=== PATIENT | male | born 1930 | race Caucasian/White ===

== ENCOUNTER 2017-03-22 15:17 | Inpatient (IN) | payer MEDICARE, OTHER ==
--- NOTE | ~2017-03-22 | CN ---
Consultation Report [facility] [address] [place]. [address] NAME: EMERSON CORBIN : [birth year] STATUS : ADM IN PAT#: [id number] AGE: 86 ADM/REG DATE : 03/23/17 MR#: [id number] REPORT SERV DATE: 03/23/17 DICTATED BY: ABI KATHLEEN DATE: 03/23/17 REPORT STATUS : Draft TRANSCRIBED BY: MODBelén DATE: 03/23/17 DATE OF CONSULTATION: TIME: 3:50 p.m. REASON FOR CONSULTATION: Elevated BUN and creatinine. ASSESSMENT: 1. 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 Oliveros catheter was changed, and he has had a significant polyuric state, and his creatinine has declined. Considering his overall debilitated condition, discussed with Dr. Mcgrath, his cancer and his bladder is inoperable, he is not a candidate for urostomy tubes at this time and plan therefore is:. 2. Palliative Care consult in the morning. 3. He is a DNR/DNI. 4. Stop his bicarbonate infusion. 5. Leave his Olivreos catheter and his creatinine should trend down, there is no indication for dialysis at this time and he does not want it either, and I would keep his diet ad sha except for a low-potassium diet. HISTORY OF PRESENT ILLNESS: History is obtained from the patient's records available. He is a very pleasant 86-year-old gentleman who has an unfortunate chronic condition involving his bladder with chronic bladder cancer with chronic obstructive uropathy that is inoperable. He now presented to the hospital. Yesterday, it was noted that his catheter was not functioning well, his urine output had gone down, he developed some bilateral lower quadrant pain. He denied any fever or chills or night sweats, and it was noted that his Oliveros catheter was occluded. With that, he is also draining, leaking around his catheter, and this was of some concern to the patient and his family, and he came for evaluation. He was noted to have a creatinine of 5.13 with a BUN of 77. He was also noted to be febrile with a temperature of 101.9 and a white count of 12,000, and urinalysis was suggestive of a UTI. His CT scan confirmed the presence of bilateral hydronephrosis and hydroureter and with these concerns and an INR of 2.3, he was admitted for further evaluation. He presently feels well. His appetite is good. He wants to eat. He denies any shortness of breath. His flank pain appears to be better and denies any fever or chills. In addition, after his Oliveros catheter was changed, he almost had a liter of urine output and so far in the bag today, already his bag appears to be quite full. PAST MEDICAL HISTORY: 1. Includes a high-grade transitional urothelial cancer, status post radiation treatment, but not a candidate for any further therapy or cystectomy. 2. Mechanical mitral valve replacement, on chronic Coumadin therapy. 3. CKD. 4. Atrial fibrillation. Consultation Report [facility] [address] [facility] [place]. [address] NAME: EMERSON CORBIN : [birth year] STATUS : ADM IN [facility]#: [id number] AGE: 86 ADM/REG DATE : 03/23/17 MR#: [id number] REPORT SERV DATE: 03/23/17 DICTATED BY: ABI KATHLEEN DATE: 03/23/17 REPORT STATUS : Draft TRANSCRIBED BY: MODESTO DATE: 03/23/17 5. Chronic heart failure. 6. Anemia of CKD and cancer. 7. Hypothyroidism. 8. Previous E coli urinary tract infection with bacteremia. He has had an appendectomy and a TURP in the past. ALLERGIES: MORPHINE AND CODEINE. HOME MEDICATIONS: Tylenol, allopurinol, vitamin C and D, Colace, ferrous sulfate, Allie, Lasix, levothyroxine, potassium, Senokot, tramadol, triamcinolone, Coumadin, and some vitamin for his vision. SOCIAL HISTORY: No tobacco, alcohol, medication, or street drug usage. His daughter has moved in with him. FAMILY HISTORY: His mother had thyroid cancer. Father from complications from a motor vehicle accident. REVIEW OF SYSTEMS: As per the HPI. PHYSICAL EXAMINATION: GENERAL: He is an elderly patient awake and alert, in no acute distress and he is appropriate to questions. He has some cachexia and debilitation with muscle wasting. He is awake, alert. He is appropriate to questions. He is slow to talk, but his speech is normal and he has no focal symptoms at this point. VITAL SIGNS: Showed him to have a blood pressures running 147/64. His heart rate is in the 90s, but he is in atrial fibrillation. HEENT: His pupils are reacting to light. He is not pale or jaundiced. Oral mucosa is moist. No pharyngitis. NECK: Supple. No thyromegaly. Trachea central. Air entry is equal bilaterally. CHEST: Clear to auscultation. HEART: [place] beats not displaced. S1-S2. No rub. ABDOMEN: Mildly distended, but he has a fullness in his lower abdomen, but it does not appear like he is tender to touch. There is no guarding or rebound. His bowel sounds are present. EXTREMITIES: He has a trace edema. He is moving all limbs spontaneously. NEUROLOGIC: There are no gross neurological deficits. His affect is not depressed either. IMAGING: His CT scan shows severe bilateral hydronephrosis and hydroureter. Bladder decompression on Oliveros catheter is noted. Bilateral simple cysts are noted. His prostate is noted to be enlarged, cardiomegaly, partially contracted gallbladder is noted as well. LABORATORY DATA: Lab work today: Sodium 140, potassium 4.4, chloride 105, CO2 24, BUN 72, creatinine 4.81, albumin is 2.7. His hemoglobin is 7.3, hematocrit 22.2, white count 10.9, Consultation Report [address] [address] NAME: EMERSON CORBIN : [birth year] STATUS : ADM IN [facility]#: [id number] AGE: 86 ADM/REG DATE : 03/23/17 MR#: [id number] REPORT SERV DATE: 03/23/17 DICTATED BY: ABI KATHLEEN DATE: 03/23/17 REPORT STATUS : Draft TRANSCRIBED BY: MODL DATE: 03/23/17 and platelet count 212,000. His urinalysis showed pyuria. MG/MODL Abi Kathleen M.D. / [id number] CC: Piyush Pineda MD
--- NOTE | ~2017-03-22 | DS ---
Discharge Summary [facility] [address] [facility] [place]. [address] NAME: EMERSON CORBIN : [birth year] STATUS : DIS IN PAT#: [id number] AGE: 86 ADM/REG DATE : 03/23/17 MR#: [id number] REPORT SERV DATE: 03/27/17 DICTATED BY: SURYA GARCIA DATE: 03/26/17 REPORT STATUS : Draft TRANSCRIBED BY: MODL DATE: 03/26/17 ADMISSION DATE: 03/23/2017 DISCHARGE DATE: 03/26/2017 PRINCIPAL DIAGNOSES: Acute kidney injury due to bladder outlet obstruction and ureteral obstruction due to metastatic transitional cell carcinoma. SECONDARY DIAGNOSES: 1. Urinary tract infection. 2. Chronic systolic congestive heart failure. 3. Anemia of chronic disease. 4. Hypotension due to impaired cardiac output. 5. He had a history of mechanical aortic valve. 6. Cachexia malignancy. HISTORY OF PRESENT ILLNESS: Please see Dr. Rivers's dictation on 03/23/2017. HOSPITAL COURSE: Admitted to the ICU with hypotension, acute kidney injury, found to have bladder outlet obstruction and ureteral obstruction. Has some improvement in creatinine with a Oliveros catheterization seen by Urology and nephrostomy tube was discussed, but felt not to be necessary as creatinine had improved and functional status had improved; however, his prognosis did not. He was not felt to be a candidate for dialysis for surgical or medical cure or even treatment for his transitional cell carcinoma. Hospice care was discussed. He was transitioned home with [facility], and he went home in satisfactory condition with low-salt, low-fat diet. Coreg and hydralazine were added to his regimen due to his heart failure and as well as Duricef for his UTI. Other medicines were per chart. Greater than 30 minutes were spent in the care of this patient and discharge planning on discharge day. RAHUL/MODESTO Surya Garcia M.D. / [id number] CC: Gt Mauricio MD [facility] Piyush Mcgrath M.D.
--- NOTE | ~2017-03-22 | CN ---
Consultation Report [facility] [address] [place]. [address] NAME: ALEJANDRO COSTELLO : [birth year] STATUS : ADM IN PAT#: [id number] AGE: 86 ADM/REG DATE : 03/23/17 MR#: [id number] REPORT SERV DATE: 03/24/17 DICTATED BY: KE BENNETT DATE: 03/24/17 REPORT STATUS : Draft TRANSCRIBED BY: MODL DATE: 03/24/17 PALLIATIVE CARE CONSULTATION DATE OF CONSULTATION: 03/24/2017 REASON FOR CONSULTATION: Multisystem compromise in an 86-year-old gentleman. Assistance with disposition and outpatient care. ALLERGIES: LISTED MORPHINE AND CODEINE. THE REACTIONS ARE NOT NECESSARILY SPECIFIED. THE PATIENT HIMSELF IS THE SOURCE OF THE HISTORY. HOWEVER, HE IS EXTREMELY HARD OF HEARING AND A BIT LOQUACIOUS IN HIS SPEECH. PRESENT ILLNESS: Alejandro is an 86-year-old with recently treated bladder cancer, acute on chronic obstructive uropathy and renal failure, and ischemic cardiomyopathy with an ejection fraction in the 30, status post mitral valve replacement 1992 with a history of chronic anemia and blood loss anemia, who enters the hospital on 03/22/2017 with a notation of decreased urine output in his Oliveros and flank pain. He was noted to have evidence of obstructive uropathy and hydronephrosis. The Oliveros has been changed. He was admitted to the ICU with accelerated renal failure and hyperkalemia and appears to be improved somewhat. He has made it very clear. He does not wish to receive dialysis, nephrostomy tubes, stents, or any other intervention and in fact stents would probably be nearly impossible to place based upon his bladder anatomy. He reports that his quality of life is good, although with decreased hearing and now over the last year or so progressive vision loss. He has had some difficulty doing the things he likes to do in terms of reading, etc. His appetite is okay. He lives alone. Having been twice. Enjoys gardening and does all his own self-care. He does have a number of assistance programs [facility] the [facility]. We note that he does have a decreased hemoglobin, hematocrit, low iron stores, and an albumin of 2.5 and a creatinine which had peaked at 5.13 on admission with a baseline of about 1.9, which is now down to 4.23. He is making over a liter of urine per day. The Oliveros catheter change appeared to be affective; however, he does have some leaking around the catheter. The patient evidently made himself a DNR yesterday after discussion with Dr. Kathleen I did confirm that with him. PAST MEDICAL HISTORY: As above. Also includes appendectomy. He had bladder cancer diagnosed in 09/2016 and serial TURP resections. He was hospitalized in October with an episode of syncope probably secondary to anemia and blood loss. He is chronically anticoagulated from his mitral valve, making control the situation somewhat difficult. SOCIAL HISTORY: He was twice, twice. He is a nonsmoker, nondrinker at this time. He has a brother nearby sometimes available for helping him. The [place] has a number Consultation Report [address] [place]. [address] NAME: ALEJANDRO COSTELLO : [birth year] STATUS : ADM IN [facility]#: [id number] AGE: 86 ADM/REG DATE : 03/23/17 MR#: [id number] REPORT SERV DATE: 03/24/17 DICTATED BY: KE BENNETT DATE: 03/24/17 REPORT STATUS : Draft TRANSCRIBED BY: MODESTO DATE: 03/24/17 programs involved. 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 At this time, he lives alone and I am aware of the fact he has at least one daughter, Peyton, who is in the area. FAMILY HISTORY: Noncontributory. REVIEW OF SYSTEMS: System review includes about an 8-pound weight loss since September. Hearing issues, he wears bilateral hearing aids. 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 He tells me he is a candidate for a one- month program through the [facility] to learn how to get a computer that will both talk and listen to him. While he would like to do this program, he also recognized as he is getting a bit worse, but in all candor, I think he is relatively oblivious to the magnitude of his problems. PHYSICAL EXAMINATION: GENERAL: Shows a well-developed, elderly gentleman, who appears to be his stated age. VITAL SIGNS: He has a blood pressure currently 115/60, his respiratory rate is 16 to 18. His rhythm was documented as regular; however, he appears to have some periods of sinus rhythm with some periods of look like atrial fib to me. On 2 L, his pulse ox is 98%, his heart rate ranges between 80 and 90. HEENT: Head normocephalic. Eyes, he wears glasses. His pupils are sluggish, but reactive and symmetrical. Conjunctivae are pale. Nasopharynx grossly clear. Mouth is edentulous. Trachea midline. LUNGS: Show coarse clear breath sounds bilaterally without rhonchi or rales. He has chest wall changes from previous surgery. HEART: Mostly irregular, but periods of irregularity that are suggestive of atrial fibrillation by telemetry. S1 and S2 are heard. He does have a prosthetic mitral valve snap. He also has a soft 2/6 systolic murmur heard. Pulses are symmetrical. ABDOMEN: Soft, nontender without rebound, tenderness or guarding at this time. He says his flanks are much less uncomfortable than they were. Oliveros catheter is in place, draining yellow urine. There is a bit of urine dribbling around the catheter. EXTREMITIES: Trace edema. NEUROLOGICAL: Except as above, grossly within normal limits. The patient is rather verbose, but, well focused and maintains a train of thought and content that certainly do not suggest an element of dementia. IMPRESSION, PLAN, AND DISCUSSION: Mr. Costello is an unfortunate fellow with underlying cardiac issues and progressive bladder cancer that is beginning to complicate his life to a point that I am not sure how much longer he can live independently even with help. I think getting the [facility] involved to try and provide additional support including the hospice might be somewhat beneficial. I have discussed the case with the residential case manager and we will certainly Consultation Report [facility] [address] [place]. [address] NAME: ALEJANDRO COSTELLO : [birth year] STATUS : ADM IN [facility]#: [id number] AGE: 86 ADM/REG DATE : 03/23/17 MR#: [id number] REPORT SERV DATE: 03/24/17 DICTATED BY: KE BENNETT DATE: 03/24/17 REPORT STATUS : Draft TRANSCRIBED BY: MODESTO DATE: 03/24/17 pursue things in that direction. I have also discussed the case with Dr. Kathleen. I do get the idea; however, the patient is going to have some very definite ideas about what he will and will not do. Total consult time was 75 minutes plus dictation total of 80. RWG/MODESTO Ke Bennett M.D. / [id number] CC: Piyush Pineda MD
--- NOTE | ~2017-03-22 | HP ---
History And Physical [id number] [place]. [address] NAME: EMERSON COSTELLO : [birth year] STATUS : ADM [facility]#: [id number] AGE: 86 ADM/REG DATE : 03/23/17 MR#: [id number] REPORT SERV DATE: 03/23/17 DICTATED BY: SHWETA SIERRA DATE: 03/23/17 REPORT STATUS : Draft TRANSCRIBED BY: MODL DATE: 03/23/17 DATE OF ADMISSION: 03/22/2017 POINT OF ENTRY: [facility] Emergency Department. PRIMARY CARE PHYSICIAN: Dr. Hernandez PRIMARY UROLOGIST: Dr. Orona. PRIMARY RAILROAD AUDITOR: Dr. Sahu at [facility]. CHIEF COMPLAINT: Abdominal pain and Oliveros not draining urine. HISTORY OF PRESENT ILLNESS: Mr. Costello is an 86-year-old gentleman with a history of high- grade transitional cell urothelial carcinoma, status post radiation therapy in the past; mechanical mitral valve, on Coumadin anticoagulation; chronic kidney disease, stage 3; chronic systolic congestive heart failure ejection fraction of 30%; who presents to the emergency department today with reports of abdominal pain as well as concerns for malfunctioning Oliveros catheter. The patient states his primary reason for coming into the emergency room today as he felt that his catheter was not functioning as it was not draining any urine. He also does note some bilateral lower quadrant abdominal pain. He denies any fevers, night sweats, chills, chest pain, palpitations, shortness of breath, nausea, vomiting, diarrhea, constipation, dysuria, melena, hematochezia, hemoptysis, or hematemesis. COMPREHENSIVE REVIEW OF SYSTEMS: Otherwise, negative unless listed in history of present illness. Initial evaluation in the emergency department for creatinine of 5.13, BUN of 77, and potassium 5.4. He was noted to be febrile with 101.9 degrees Fahrenheit temperature as well as a white count of 12,100. Urinalysis was positive for urinary tract infection as well as hematuria. CT scan of the abdomen and pelvis was undertaken, which showed severe bilateral hydronephrosis and hydroureter with concern for obstruction at the area of the trigone. The patient's INR was 2.3. He was started on some antibiotics. Urology, Dr. Diehl was consulted and saw the patient in the emergency department. Dr. Diehl was concerned that given the patient's abnormal anatomy and difficult previous cystoscopy that the patient would likely need bilateral nephrostomy tube placement if his creatinine did not improve. Of note, the patient did put out approximately 1.1 L of urine through his Oliveros catheter while in the ER. The patient also had a very large bowel movement secondary to Kayexalate, which was mildly positive on occult testing. The patient was subsequently admitted to the Hospitalist Service for further evaluation and management. PREVIOUS MEDICAL HISTORY: 1. High-grade transitional cell urothelial carcinoma, status post radiation therapy. 2. History of mechanical mitral valve replacement, on Coumadin. History And Physical [address] [address] NAME: EMERSON COSTELLO : [birth year] STATUS : ADM IN [facility]#: [id number] AGE: 86 ADM/REG DATE : 03/23/17 MR#: [id number] REPORT SERV DATE: 03/23/17 DICTATED BY: SHWETA SIERRA DATE: 03/23/17 REPORT STATUS : Draft TRANSCRIBED BY: MODESTO DATE: 03/23/17 3. Chronic kidney disease stage 3, baseline creatinine approximately 1.7 to 2. 4. Atrial fibrillation. 5. Chronic systolic congestive heart failure, ejection fraction of 30%. 6. Anemia of chronic disease. 7. Hypothyroidism. 8. Recent history of E. coli urinary tract infection and bacteremia. SURGICAL HISTORY: 1. Mechanical mitral valve. 2. Appendectomy. 3. TURBT. ALLERGIES: MORPHINE AND CODEINE. HOME MEDICATIONS: 1. Tylenol 500 mg daily p.r.n. 2. Allopurinol 100 mg daily. 3. Vitamin C 250 mg b.i.d. 4. Vitamin D 2000 units daily. 5. Colace 100 mg b.i.d. 6. Ferrous sulfate 325 mg b.i.d. 7. Allie 180 mg daily. 8. Lasix 40 mg b.i.d. 9. Levothyroxine 200 mcg daily. 10.Potassium chloride 10 mEq b.i.d. 11.Senokot one tab b.i.d. 12.Tramadol 50 mg b.i.d. 13.Triamcinolone topical cream. 14.PreserVision one tab b.i.d. 15.Coumadin 5 mg at bedtime. SOCIAL HISTORY: Denies any tobacco, alcohol, or illicits. Lives alone. FAMILY MEDICAL HISTORY: Mother with thyroid cancer, father of complications of a motor vehicle accident. LABS AND IMAGIN. White count 12.1, hemoglobin 7.7, hematocrit 23.3, and platelet count is 220. INR is 2.3. 2. Sodium is 133, potassium 5.4, chloride 100, carbon dioxide 25, BUN 77, creatinine 5.13, glucose is 97, calcium is 8.8, protein is 8.0, albumin is 2.9, bilirubin is 0.6, ALT is 33, AST 37, and alkaline phosphatase is 90. 3. BNP is 466. Troponin is pending. 4. Urinalysis: Spec gravity is 1.010, turbid appearance, large leukocyte esterase, greater than 182 red and white blood cells per high-power field with many bacteria. 5. Chest x-ray per review shows no acute cardiopulmonary abnormality. 6. CT scan of the abdomen and pelvis shows severe hydronephrosis and hydroureter History And Physical [address] [address] NAME: EMERSON COSTELLO : [birth year] STATUS : ADM IN [facility]#: [id number] AGE: 86 ADM/REG DATE : 03/23/17 MR#: [id number] REPORT SERV DATE: 03/23/17 DICTATED BY: SHWETA SIERRA DATE: 03/23/17 REPORT STATUS : Draft TRANSCRIBED BY: MODL DATE: 03/23/17 bilaterally with evidence of obstruction at the level of the bladder trigone possibly from known bladder cancer, prostatic enlargement, cardiomegaly status post mitral valve replacement, partially contracted gallbladder with gallbladder wall thickening, although no radiodense gallstones or bile duct dilatation of uncertain clinical significance. 7. EKG per my review shows atrial flutter versus atrial fib with heart rates in the 90s. No evidence of any T-wave changes or acute ischemia or infarction. PHYSICAL EXAMINATION: VITAL SIGNS: Temperature is 101.9 degrees Fahrenheit, pulse is 87, respirations 19, saturating 100% on room air, and blood pressure 116/61. On recheck, blood pressure is now 108/56 and pulse of 62. GENERAL: The patient is awake, alert, in no acute distress. Resting comfortably. He is a chronically ill-appearing, elderly male. No family is at bedside. HEENT: Atraumatic and normocephalic. Dry mucous membranes. Pupils are equal, round, reactive to light and accommodation. Extraocular eye movements intact. No scleral icterus. NECK: No jugular venous distention. No carotid bruits. CARDIAC: Irregularly irregular rate and rhythm. 2/6 systolic murmur heard best over left lower sternal border. LUNGS: Clear to auscultation bilaterally, except for some decreased breath sounds at bases. ABDOMEN: Obese, soft, nontender, nondistended. Good bowel sounds. No rebound, guarding, or rigidity. EXTREMITIES: Warm, well perfused with trace lower extremity edema. SKIN: Warm and dry. PSYCH: Affect appropriate. NEURO: Alert and oriented x3. Cranial nerves 2 through 12 grossly intact. Speech is normal. Gait not assessed. GENITOURINARY: The patient has Oliveros catheter in place draining clear yellow urine. ASSESSMENT AND PLAN: Mr. Costello is an 86-year-old gentleman with a history of bladder cancer, who presents with evidence of acute kidney injury and obstructive uropathy. PROBLEM LIST: 1. Acute kidney injury. 2. Hyperkalemia. 3. Obstructive uropathy. 4. Urinary tract infection. 5. Leukocytosis. 6. Chronic systolic congestive heart failure. 7. Mechanical mitral valve, on Coumadin. 8. Occult positive stool. 9. Anemia of chronic disease. PLAN: 1. Acute kidney injury. Suspect this is due to obstructive uropathy given severe bilateral hydronephrosis, however, the patient has produced greater than 1 L of urine here in the emergency department. We will hold nephrotoxic medications, provide IV History And Physical [address] [address] NAME: EMERSON COSTELLO : [birth year] STATUS : ADM IN [facility]#: [id number] AGE: 86 ADM/REG DATE : 03/23/17 MR#: [id number] REPORT SERV DATE: 03/23/17 DICTATED BY: SHWETA SIERRA DATE: 03/23/17 REPORT STATUS : Draft TRANSCRIBED BY: MODL DATE: 03/23/17 fluid hydration. Ask Renal to see patient in consultation. Urology has already been consulted, will see patient again in the morning. If the patient's creatinine did not improve significantly, he will need likely bilateral nephrostomy tube placement. 2. Hyperkalemia. Holding the patient's nephrotoxic medications. We will give him the appropriate medications here. He has already received Kayexalate. We will give insulin glucose, calcium gluconate as well as sodium bicarb and IV fluids. Recheck in the morning. 3. Obstructive uropathy with severe bilateral hydronephrosis and hydroureter. Urology has been consulted. They are concerned they may not relieve the obstruction using cystoscopy given previous difficulties in the past. They are considering bilateral nephrostomy tube placement if his creatinine does not improve. They have asked me to reverse the patient's INR in anticipation of nephrostomy tube placement in the morning. 4. Mechanical mitral valve, on Coumadin. INR is currently 2.3. Given possible need for nephrostomy tube placement, I will reverse his INR with [address] him on a heparin drip once his INR is just below 2.0 and then, we will hold heparin for few hours prior to procedure for nephrostomy tube placement. 5. Urinary tract infection. Follow up urine culture. Place him on IV antibiotics. 6. Chronic systolic congestive heart failure. The patient currently appears euvolemic, slightly dry at this time despite elevated BNP. We will provide some IV fluid hydration, holding his Lasix. We will need to closely monitor his fluid status given need for FFP as well as impaired renal function. 7. Anemia of chronic disease with occult positive stool. We will trend out q.6 hours hemoglobin and hematocrit, transfuse if hemoglobin is less than 7. We are reversing somewhat his INR as per above. 8. DVT prophylaxis. The patient is therapeutically anticoagulated. CODE STATUS: The patient wishes to be full code. This critical care time spent on patient is 60 minutes. JCB/MODL Shweta Sierra MD / [id number] CC: Gt Carmona MD [facility] (Dr. Sahu) Jaswinder Orona III, M.D.
--- NOTE | ~2017-03-22 | CN ---
Consultation Report [facility] [address] [place]. [address] NAME: EMERSON CORBIN : [birth year] STATUS : ADM IN PAT#: [id number] AGE: 86 ADM/REG DATE : 03/23/17 MR#: [id number] REPORT SERV DATE: 03/23/17 DICTATED BY: ALESSIO DIEHL III DATE: 03/22/17 REPORT STATUS : Draft TRANSCRIBED BY: MODBelén DATE: 03/22/17 DATE OF CONSULTATION: REASON FOR CONSULT: Abdominal pain, UTI, hydronephrosis, and bladder cancer. HISTORY OF PRESENT ILLNESS: The patient is an 87-year-old, white male patient with known transitional cell carcinoma of the bladder. [facility] with high a grade invasive cancer using external radiotherapy and chemotherapy. He came in with suprapubic pain and fever over the entire day. The details were somewhat sketchy; however, his daughter said very little was draining into the bag. He was wetting and he wet the bed and more or less saturated the sheets twice today. The catheter apparently started draining after he came to the ER and before fluids were given almost a 1000 mL of urine had collected in the bag. The patient has seen Dr. Renner who resected some tissue from the trigone area in October. He could not identify the ureteral orifices at that time. He also had a cystoscopy by Dr. Mcgrath in December and the description of which was an end-stage erythematous bladder. He was felt not to be obviously a candidate for a cystectomy. The patient was found to have a temp of 101.9. His vital signs were stable. [place] [address]. Creatinine was 5 with a BUN of 77. His baseline is in the 2.3 to 3 range. He currently does see the Dr. Gilmore at [facility]. He has not had any bleeding. His catheter was recently up sized to a 20-Yi apparently to help with leakage. The detail was poor on this matter. He has had UTIs with Pseudomonas and E. coli over the last 2 years, but has not been running fever or having pain until today. PAST MEDICAL HISTORY: Includes a mechanical heart valve, arthritis. He has had a TURBT. He has had several digits removed from his right hand and a number of smaller surgeries. MEDICATIONS: Reviewed on the chart and did include 5 mg of Coumadin daily. ALLERGIES: ALLERGIC TO CODEINE AND MORPHINE. PHYSICAL EXAMINATION: On exam, he was alert, very hard of hearing. Blood pressure was 116/61, pulse was 70, and temperature is 101. HEENT: Unremarkable. Mucous membranes were dry. NECK: Supple. He had an irregular rhythm suggestive of atrial fibrillation. Lung yu were clear. ABDOMEN: Soft. Bowel sounds are present and active. Liver and spleen were not enlarged. The bladder was not palpable. Oliveros catheter appeared to be in place and draining clear urine. I did not do a rectal exam. He had a huge diarrheal stool at the time of the exam. His CT showed some stranding about both kidneys with significant hydronephrosis down to the bladder level. Bladder was decompressed. There was not a reference study to determine if the hydronephrosis has worsened. There had been reference studies at [facility]. There was one in and October that showed hydronephrosis to be essentially the same. At that time, he did not have a catheter in place and had an irregular bladder wall. His urine was inflammatory. He has been started on antibiotics and Medicine has been consulted regarding Consultation Report [address] [address] NAME: EMERSON CORBIN : [birth year] STATUS : ADM IN [facility]#: [id number] AGE: 86 ADM/REG DATE : 03/23/17 MR#: [id number] REPORT SERV DATE: 03/23/17 DICTATED BY: ALESSIO DIEHL III DATE: 03/22/17 REPORT STATUS : Draft TRANSCRIBED BY: MODBelén DATE: 03/22/17 his Coumadin. IMPRESSION: 1. UTI. This could well be pyelonephritis. Alternatively, it sounds as if his catheter may have been obstructed and he simply leaked around it. The daughter stated that when he got to the ER, his catheter had been irrigated and over 1000 mL was in the urinal when I first saw him. 2. Hydronephrosis which is chronic. I explained the family that I think the odds of stenting of him are probably quite slim considering the fact that Dr. Orona could not identify the ureteral orifices in October. There were not mentioned by Dr. Mcgrath on his cystoscopy. The patient had did have peanut butter and crackers before I examined him, and at this point, I think I would not favor a crash induction. I discussed this with the hospitalist and we are going to hydrate him treating with antibiotics and slowly reverse his Coumadin, but keep him on a heparin drip. If he improves with simply fluids and antibiotics, we may avoid nephrostomy tubes or attempts at stenting. OB/MODL Alessio Diehl III, M.D. / [id number] CC: Gt Carmona MD
[~2017-03-22 15:17] MED LIST: ACET500CAP PO; ALLEGRA180 PO; C25 PO; C5 PO; COREG3 PO; DSS PO; FERROUS SULF325 M1 PO; KAON-CL-1010 MEQ PO; KDUR10 PO; L40 PO; LIPITOR20 PO; MOMUD PO; PRESERVISION A1 EAC1 PO; SENTAB PO; SPIRO25 PO; SYNTHROID200 MCG PO; TRIAMCINOLONE O80 GM TOP; TRIAMCINOLONE454 GM TOP; ULTRAM50 PO; UREA 10% TOP; VITAMIN C100 MG PO; VITAMIN D31000 UNIT PO; VITC500 PO; Z100 PO; ZYVOXPO PO
[2017-03-22 17:24] LABS: BASOPHILS 0.1 %; BASOPHILS ABSOLUTE 0.01 10/3/uL (0.0-0.16); EOSINOPHILS 0.2 %; EOSINOPHILS ABSOLUTE 0.03 10/3/uL (0.0-0.53); ER CBC TAT 0 Hrs 13 Mins; HEMATOCRIT 23.3 % (40.0-51.0); HEMOGLOBIN 7.7 g/dL (13.6-17.8); IMMATURE GRANULOCYTES 0.3 %; IMMATURE GRANULOCYTES ABSOLUTE 0.04 10/3/uL (0.0-0.11); LYMPHOCYTES 9.6 %; LYMPHOCYTES ABSOLUTE 1.16 10/3/uL (0.67-4.30); MEAN CORPUSCULAR HEMOGLOB 27.2 pg (26.0-34.0); MEAN CORPUSCULAR VOLUME 82.3 fL (80-100); MONOCYTES 4.3 %; MONOCYTES ABSOLUTE 0.52 10/3/uL (0.21-1.20); NEUTROPHILS 85.5 %; PLATELET COUNT 220 10/3/uL (150-400); RED CELL COUNT 2.83 10/6/uL (4.7-6.1); WHITE BLOOD CELLS 12.1 10/3/uL (4.5-10.5)
[2017-03-22 17:27] LABS: MANUAL DIFF NO %; RBC DISTRIBUTION WIDTH 15.7 % (12.0-16.0)
[2017-03-22 17:30] LABS: ALBUMIN 2.9 G/DL (3.5-5.0); CALCIUM, SERUM 8.8 MG/DL (8.5-10.4); CHLORIDE, SERUM 100 MMOL/L (96-112); CO2 (CARBON DIOXIDE) 25 MMOL/L (24-34); GLUCOSE, SERUM 97 MG/DL (60-99); SGOT(AST) 37 U/L (5-40); SGPT(ALT) 33 U/L (5-65); SODIUM, SERUM 133 MMOL/L (135-148)
[2017-03-22 17:31] LABS: ASCORBIC ACID (UR NOT ORDER) 40 (NEG); BILIRUBIN, URINE NEGATIVE (NEG); ER URINALYSIS TAT 0 Hrs 20 Mins; KETONE, URINE NEGATIVE (NEG); LEUKOCYTE ESTERASE(NOT OR LARGE (NEG); NITRITE (URINE) NEG (NEG); WBC (NOT ORDERED) (RFLEX) > 182 (0-5)
[2017-03-22 17:31] LABS: A/G RATIO 0.6 (0.7-1.9); ALKALINE PHOSPHATASE 90 U/L (45-117); BUN (BLOOD UREA NITROGEN) 77 MG/DL (6-23); CREATININE 5.13 MG/DL (0.70-1.30); GFR AFRICAN AMERICAN 11 ML/MIN (>=60); GFR NON AFRICAN AMERICAN 9 ML/MIN (>=60); GLOBULIN 5.1 G/DL (2.5-4.1); POTASSIUM, SERUM 5.4 MMOL/L (3.5-5.3); TOTAL BILIRUBIN 0.6 MG/DL (0-1.2)
[2017-03-22 17:34] LABS: PARTIAL THROMBO TIME 48.4 SEC (22.5-37.2)
[2017-03-22 17:38] LABS: INTERNATIONAL NORMAL RATI 2.3 UNITS (-); PROTIME (NOT ORD) 25.1 SEC (12.0-14.5)
[2017-03-22 17:58] LABS: PROCALCITONIN 0.43 ng/mL (<0.5)
[2017-03-22] MEDS ORDERED: VITAMIN D31000 UNIT PO (18:29)
[2017-03-22] MEDS ORDERED: ACET500CAP PO (18:29)
[2017-03-22] MEDS ORDERED: ALLEGRA180 PO (18:30)
[2017-03-22] MEDS ORDERED: L40 PO (18:31)
[2017-03-23 00:27] LABS: TROPONIN I <0.02 NG/ML (<0.05)
[2017-03-23 00:47] LABS: PROCALCITONIN 0.45 ng/mL (<0.5)
[2017-03-23 03:55] LABS: CREATININE, URINE 46.5 MG/DL
[2017-03-23 04:31] LABS: BASOPHILS 0.2 %; BASOPHILS ABSOLUTE 0.02 10/3/uL (0.0-0.16); EOSINOPHILS 1.1 %; EOSINOPHILS ABSOLUTE 0.12 10/3/uL (0.0-0.53); HEMATOCRIT 23.6 % (40.0-51.0); HEMOGLOBIN 7.7 g/dL (13.6-17.8); IMMATURE GRANULOCYTES 0.4 %; IMMATURE GRANULOCYTES ABSOLUTE 0.04 10/3/uL (0.0-0.11); LYMPHOCYTES ABSOLUTE 0.98 10/3/uL (0.67-4.30); MANUAL DIFF NO %; MEAN CORPUS HGB CONC 32.6 g/dL (32.0-36.0); MEAN CORPUSCULAR HEMOGLOB 26.8 pg (26.0-34.0); MEAN CORPUSCULAR VOLUME 82.2 fL (80-100); MEAN PLATELET VOLUME 9.1 fL (9.2-13.0); MONOCYTES 7.9 %; MONOCYTES ABSOLUTE 0.86 10/3/uL (0.21-1.20); NEUTROPHILS 81.4 %; NEUTROPHILS ABSOLUTE 8.84 10/3/uL (2.02-8.40); PLATELET COUNT 212 10/3/uL (150-400); RBC DISTRIBUTION WIDTH 15.8 % (12.0-16.0); RED CELL COUNT 2.87 10/6/uL (4.7-6.1); WHITE BLOOD CELLS 10.9 10/3/uL (4.5-10.5)
[2017-03-23 04:35] LABS: INTERNATIONAL NORMAL RATI 2.2 UNITS (-); PROTIME (NOT ORD) 24.5 SEC (12.0-14.5)
[2017-03-23 04:47] LABS: ALBUMIN 2.7 G/DL (3.5-5.0); CALCIUM, SERUM 8.6 MG/DL (8.5-10.4); CHLORIDE, SERUM 105 MMOL/L (96-112); CO2 (CARBON DIOXIDE) 24 MMOL/L (24-34); CREATININE 4.81 MG/DL (0.70-1.30); GFR AFRICAN AMERICAN 12 ML/MIN (>=60); GFR NON AFRICAN AMERICAN 10 ML/MIN (>=60); GLUCOSE, SERUM 90 MG/DL (60-99); PHOSPHORUS, SERUM 3.4 MG/DL (2.5-4.5); POTASSIUM, SERUM 4.4 MMOL/L (3.5-5.3); TROPONIN I 0.03 NG/ML (<0.05)
[2017-03-23 04:48] LABS: BUN (BLOOD UREA NITROGEN) 72 MG/DL (6-23); SODIUM, SERUM 140 MMOL/L (135-148)
[2017-03-23 05:33] LABS: PROCALCITONIN 0.45 ng/mL (<0.5)
[2017-03-23 08:49] LABS: INTERNATIONAL NORMAL RATI 2.3 UNITS (-); PROTIME (NOT ORD) 24.8 SEC (12.0-14.5)
[2017-03-23 10:12] LABS: HEMATOCRIT 22.2 % (40.0-51.0); HEMOGLOBIN 7.3 g/dL (13.6-17.8); RETICULOCYTE COUNT 0.6 % (0.5-2.5); RETICULOCYTE COUNT ABSOLUTE 16.9 10/3/uL (20.2-119.8)
[2017-03-23 10:18] LABS: PARTIAL THROMBO TIME 49.5 SEC (22.5-37.2)
[2017-03-23 10:51] LABS: % IRON SAT 8 % (20-50); FERRITIN 331 NG/ML (26-388); IRON BINDING CAPACITY 180 MCG/DL (250-450); IRON, SERUM 15 MCG/DL (35-150)
[2017-03-23 16:46] LABS: HEMOGLOBIN 8.1 g/dL (13.6-17.8)
[2017-03-23 16:47] LABS: HEMATOCRIT 24.9 % (40.0-51.0)
[2017-03-23 22:35] LABS: HEMOGLOBIN 7.2 g/dL (13.6-17.8)
[2017-03-23 22:36] LABS: HEMATOCRIT 21.8 % (40.0-51.0)
[2017-03-24 04:55] LABS: BASOPHILS 0.1 %; BASOPHILS ABSOLUTE 0.01 10/3/uL (0.0-0.16); EOSINOPHILS 2.2 %; EOSINOPHILS ABSOLUTE 0.17 10/3/uL (0.0-0.53); HEMATOCRIT 23.4 % (40.0-51.0); HEMOGLOBIN 7.6 g/dL (13.6-17.8); IMMATURE GRANULOCYTES 0.5 %; IMMATURE GRANULOCYTES ABSOLUTE 0.04 10/3/uL (0.0-0.11); LYMPHOCYTES ABSOLUTE 0.62 10/3/uL (0.67-4.30); MEAN CORPUS HGB CONC 32.5 g/dL (32.0-36.0); MONOCYTES ABSOLUTE 1.08 10/3/uL (0.21-1.20); NEUTROPHILS 75.2 %; PLATELET COUNT 209 10/3/uL (150-400); RBC DISTRIBUTION WIDTH 15.5 % (12.0-16.0); RED CELL COUNT 2.82 10/6/uL (4.7-6.1); WHITE BLOOD CELLS 7.7 10/3/uL (4.5-10.5)
[2017-03-24 04:59] LABS: MANUAL DIFF NO %
[2017-03-24 05:26] LABS: A/G RATIO 0.6 (0.7-1.9); ALBUMIN 2.5 G/DL (3.5-5.0); ALKALINE PHOSPHATASE 86 U/L (45-117); CALCIUM, SERUM 8.4 MG/DL (8.5-10.4); CHLORIDE, SERUM 101 MMOL/L (96-112); CO2 (CARBON DIOXIDE) 25 MMOL/L (24-34); GFR AFRICAN AMERICAN 14 ML/MIN (>=60); GFR NON AFRICAN AMERICAN 12 ML/MIN (>=60); GLOBULIN 4.3 G/DL (2.5-4.1); GLUCOSE, SERUM 90 MG/DL (60-99); PHOSPHORUS, SERUM 4.1 MG/DL (2.5-4.5); POTASSIUM, SERUM 3.9 MMOL/L (3.5-5.3); SGOT(AST) 62 U/L (5-40); SGPT(ALT) 59 U/L (5-65); SODIUM, SERUM 137 MMOL/L (135-148); TOTAL BILIRUBIN 0.4 MG/DL (0-1.2); TOTAL PROTEIN 6.8 G/DL (6.0-8.5)
[2017-03-24 05:28] LABS: BUN (BLOOD UREA NITROGEN) 66 MG/DL (6-23); CREATININE 4.23 MG/DL (0.70-1.30); INTERNATIONAL NORMAL RATI 2.3 UNITS (-); PROTIME (NOT ORD) 24.9 SEC (12.0-14.5)
[2017-03-25 06:17] LABS: BASOPHILS 0.1 %; BASOPHILS ABSOLUTE 0.01 10/3/uL (0.0-0.16); EOSINOPHILS 2.9 %; EOSINOPHILS ABSOLUTE 0.21 10/3/uL (0.0-0.53); HEMOGLOBIN 7.9 g/dL (13.6-17.8); IMMATURE GRANULOCYTES 0.6 %; IMMATURE GRANULOCYTES ABSOLUTE 0.04 10/3/uL (0.0-0.11); LYMPHOCYTES ABSOLUTE 0.79 10/3/uL (0.67-4.30); MEAN CORPUS HGB CONC 32.9 g/dL (32.0-36.0); MEAN CORPUSCULAR HEMOGLOB 27.2 pg (26.0-34.0); MEAN CORPUSCULAR VOLUME 82.8 fL (80-100); MEAN PLATELET VOLUME 9.4 fL (9.2-13.0); MONOCYTES 11.5 %; MONOCYTES ABSOLUTE 0.83 10/3/uL (0.21-1.20); NEUTROPHILS 73.9 %; NEUTROPHILS ABSOLUTE 5.32 10/3/uL (2.02-8.40); PLATELET COUNT 225 10/3/uL (150-400); RBC DISTRIBUTION WIDTH 15.5 % (12.0-16.0); WHITE BLOOD CELLS 7.2 10/3/uL (4.5-10.5)
[2017-03-25 06:20] LABS: INTERNATIONAL NORMAL RATI 2.3 UNITS (-); PROTIME (NOT ORD) 24.8 SEC (12.0-14.5)
[2017-03-25 06:21] LABS: BUN (BLOOD UREA NITROGEN) 55 MG/DL (6-23); CALCIUM, SERUM 8.5 MG/DL (8.5-10.4); CHLORIDE, SERUM 101 MMOL/L (96-112); CO2 (CARBON DIOXIDE) 24 MMOL/L (24-34); GFR AFRICAN AMERICAN 16 ML/MIN (>=60); GFR NON AFRICAN AMERICAN 14 ML/MIN (>=60); GLUCOSE, SERUM 93 MG/DL (60-99); MANUAL DIFF NO %; POTASSIUM, SERUM 3.6 MMOL/L (3.5-5.3); SODIUM, SERUM 137 MMOL/L (135-148)
[2017-03-26 05:39] LABS: INTERNATIONAL NORMAL RATI 2.2 UNITS (-); PROTIME (NOT ORD) 24.1 SEC (12.0-14.5)
[2017-03-26 05:40] LABS: PARTIAL THROMBO TIME 50.1 SEC (22.5-37.2)
[2017-03-26 05:41] LABS: ALBUMIN 2.6 G/DL (3.5-5.0); BUN (BLOOD UREA NITROGEN) 54 MG/DL (6-23); CALCIUM, SERUM 8.6 MG/DL (8.5-10.4); CHLORIDE, SERUM 104 MMOL/L (96-112); CO2 (CARBON DIOXIDE) 25 MMOL/L (24-34); CREATININE 3.68 MG/DL (0.70-1.30); GFR AFRICAN AMERICAN 16 ML/MIN (>=60); GFR NON AFRICAN AMERICAN 14 ML/MIN (>=60); GLUCOSE, SERUM 85 MG/DL (60-99); PHOSPHORUS, SERUM 3.9 MG/DL (2.5-4.5); SODIUM, SERUM 139 MMOL/L (135-148)
[2017-03-26 05:55] LABS: BASOPHILS 0.1 %; BASOPHILS ABSOLUTE 0.01 10/3/uL (0.0-0.16); EOSINOPHILS 3.5 %; EOSINOPHILS ABSOLUTE 0.27 10/3/uL (0.0-0.53); HEMATOCRIT 24.8 % (40.0-51.0); HEMOGLOBIN 8.1 g/dL (13.6-17.8); IMMATURE GRANULOCYTES 0.5 %; IMMATURE GRANULOCYTES ABSOLUTE 0.04 10/3/uL (0.0-0.11); LYMPHOCYTES 11.1 %; LYMPHOCYTES ABSOLUTE 0.86 10/3/uL (0.67-4.30); MEAN CORPUS HGB CONC 32.7 g/dL (32.0-36.0); MEAN CORPUSCULAR HEMOGLOB 27.2 pg (26.0-34.0); MEAN CORPUSCULAR VOLUME 83.2 fL (80-100); MEAN PLATELET VOLUME 9.2 fL (9.2-13.0); MONOCYTES ABSOLUTE 0.78 10/3/uL (0.21-1.20); NEUTROPHILS 74.8 %; NEUTROPHILS ABSOLUTE 5.82 10/3/uL (2.02-8.40); PLATELET COUNT 242 10/3/uL (150-400); RBC DISTRIBUTION WIDTH 15.5 % (12.0-16.0); RED CELL COUNT 2.98 10/6/uL (4.7-6.1); WHITE BLOOD CELLS 7.8 10/3/uL (4.5-10.5)
[2017-03-26 05:56] LABS: MANUAL DIFF NO %
[2017-03-26 06:14] LABS: POTASSIUM, SERUM 4.4 MMOL/L (3.5-5.3)
[2017-03-26] MEDS ORDERED: COREG3 PO ×2 (17:31→17:42)
[2017-03-26] MEDS ORDERED: DURICEF PO (17:36)
[2017-03-26] MEDS ORDERED: LIPOTRIAD1 CAP PO (17:40)
[2017-03-26] MEDS ORDERED: APRES10B PO (17:44)
[2017-03-26] MEDS ORDERED: DURICEF (17:44)
== END 2017-03-26 19:40 | disposition hospice, home (50) | DRG 699 ==
LOC: ER 15:17 → IMCU 03-23 00:39 → 7NO 03-23 12:55 → IMCU 03-23 13:17 → 1SO 03-24 17:08
PROVIDERS: Internal Medicine; Nurse Practitioner Family; Registered Nurse
PROC: 30233K1 Transfusion of Nonautologous Frozen Plasma into Peripheral Vein, Percutaneous Approach (ICD-10-PCS; principal; 2017-03-23)
PROC: 30233N1 Transfusion of Nonautologous Red Blood Cells into Peripheral Vein, Percutaneous Approach (ICD-10-PCS; 2017-03-24)
DX: T83.098A Other mechanical complication of other urinary catheter, initial encounter (principal); N17.9 Acute kidney failure, unspecified; I50.22 Chronic systolic (congestive) heart failure; D68.9 Coagulation defect, unspecified; N13.30 Unspecified hydronephrosis; E87.1 Hypo-osmolality and hyponatremia; N39.0 Urinary tract infection, site not specified; I95.9 Hypotension, unspecified; N18.3 Chronic kidney disease, stage 3 (moderate); D63.1 Anemia in chronic kidney disease; Z66 Do not resuscitate; Z51.5 Encounter for palliative care; E87.5 Hyperkalemia; C67.9 Malignant neoplasm of bladder, unspecified; I25.5 Ischemic cardiomyopathy; I48.91 Unspecified atrial fibrillation; N28.1 Cyst of kidney, acquired; E66.9 Obesity, unspecified; Z68.31 Body mass index [BMI] 31.0-31.9, adult; E03.9 Hypothyroidism, unspecified; Y83.8 Other surgical procedures as the cause of abnormal reaction of the patient, or of later complication, without mention of misadventure at the time of the procedure; Z79.01 Long term (current) use of anticoagulants; Z79.899 Other long term (current) drug therapy; Z95.2 Presence of prosthetic heart valve; Z87.440 Personal history of urinary (tract) infections; Z97.4 Presence of external hearing-aid; Z88.5 Allergy status to narcotic agent
CPT/HCPCS: 36415; 71020; 74176; 80048; 80053; 80069; 81001; 82570; 82607; 82728; 83540; 83550; 83605; 83690; 83735; 83880; 83935; 84145; 84300; 84443; 84484; 85014; 85018; 85025; 85045; 85610; 85730; 86850; 86900; 86901; 86920; 87040; 87077; 87086; 87186; 87641; 93005; 97110-GP; 97116-GP; 97161-GP; 99285; A9270-GY; G8978-CJ-GP; G8979-CI-GP; J1940; J3370; P9016; P9059

== ENCOUNTER 2017-05-10 07:13 | Inpatient (IN) | payer MEDICARE, OTHER ==
--- NOTE | ~2017-05-10 | HP ---
History And Physical [address] [place]. [address] NAME: EMERSON CORBIN : [birth year] STATUS : ADM IN [facility]#: [id number] AGE: 86 ADM/REG DATE : 05/10/17 MR#: [id number] REPORT SERV DATE: 05/10/17 DICTATED BY: LUCRETIA ARIZMENDI DATE: 05/10/17 REPORT STATUS : Draft TRANSCRIBED BY: MODL DATE: 05/10/17 DATE OF ADMISSION: 05/10/2017 REASON FOR ADMISSION: Gross hematuria with blood clots. CHIEF COMPLAINT: "I started having some pain and blood clots since yesterday. HISTORY OF PRESENT ILLNESS: An 86-year-old white male with a history of invasive high-grade urothelial carcinoma, followed by Dr. Mcgrath along with obstructive uropathy, CKD stage 4, ischemic cardiomyopathy with chronic systolic heart failure with an EF of 30% along with a mitral valve replacement in 1992, on chronic Coumadin, was discharged from our service at the end of February after being diagnosed with an acute kidney injury secondary to bladder outlet obstruction, urinary tract infection, and hypotension. He [facility] actually [facility] but the patient had canceled [facility] a week after he was discharged because he was told that he could not see any [facility]. He does currently have home Healthcare with [facility] and is part of the choices program. He states that he has been doing okay up until about 2 a.m. when he started having significant bladder pain. He tried to do some exercises when he started noticing some worsening hematuria in his chronic Oliveros and the pain got so unbearable that he decided to come to the ER. In the ER, they had removed his Olivreos and noticed to have significant blood clots. They are currently placing a 3-way Oliveros which is producing gross hematuria. Otherwise the patient denies any dysuria, fever, chills, nausea, vomiting, chest pain, or shortness of breath. REVIEW OF SYSTEMS: As per HPI. Otherwise, 10-point system were reviewed and are negative. PAST MEDICAL HISTORY: Invasive high-grade urothelial carcinoma on path report of October 2016, status post radiation therapy, history of mechanical mitral valve on Coumadin, CKD stage 4, chronic atrial fibrillation, chronic systolic heart failure with an EF of 30%, anemia of chronic disease, and hypothyroidism. SURGICAL HISTORY: Mechanical mitral valve, appendectomy, and TURBT. ALLERGIES: MORPHINE AND CODEINE. MEDICATIONS: Being reviewed. SOCIAL HISTORY: He denies any tobacco, alcohol, or illicit drug use. He lives alone. He has a daughter. FAMILY HISTORY: Mother with thyroid cancer. Father from complications of a motor vehicle accident. PHYSICAL EXAMINATION: VITAL SIGNS: Blood pressure is 112/59, temperature is 98.5, and pulse is 101. GENERAL: He is very pleasant but is in some mild pain after placing a 3-way catheter. History And Physical [address] [address] NAME: EMERSON CORBIN : [birth year] STATUS : ADM IN [facility]#: [id number] AGE: 86 ADM/REG DATE : 05/10/17 MR#: [id number] REPORT SERV DATE: 05/10/17 DICTATED BY: LUCRETIA ARIZMENDI DATE: 05/10/17 REPORT STATUS : Draft TRANSCRIBED BY: MODESTO DATE: 05/10/17 HEENT: Normocephalic, atraumatic head. Extraocular muscles are intact. Oropharynx is clear. NECK: Supple. No JVD. CARDIAC: Irregularly irregular with tachycardia with a mechanical click. PULMONARY: Clear to auscultation bilaterally. ABDOMEN: Soft, nontender, and nondistended. Positive bowel sounds. EXTREMITIES: Showed no clubbing, cyanosis, or edema. NEUROLOGIC: Shows cranial nerves 2 through 12 grossly intact. No focal deficits. SKIN: Warm and dry. PSYCHIATRIC EXAM: The patient is cooperative. Mood is appropriate. LABORATORY DATA: Show white blood cell count of 11.8, hemoglobin 8.6, and platelets of 212. CMP shows a creatinine of 3.7, BUN of 64, and INR of 3. UA shows trace ketones, cloudy appearance with large blood, small leukocyte esterase, 14 white blood cells over 182 rbc's. IMPRESSION: 1. Gross hematuria with blood clots. 2. Chronic kidney disease stage 4. 3. 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 4. Chronic systolic heart failure with an EF of 30% compensated. 5. Chronic atrial fibrillation with mechanical mitral valve on chronic Coumadin. PLAN: Plan is to do a 3-way catheter with continuous bladder irrigation. Consult Dr. Mcgrath for further recommendations. The patient is a DNR/DNI. He wishes to resume his home health after discharge. We will monitor for any signs of worsening congestive heart failure and try to limit the amount of fluids he receives. We will monitor his kidney function daily. RUTH/MODESTO Lucretia Arizmendi MD / [id number] CC: MD Piyush Mujica M.D.
--- NOTE | ~2017-05-10 | OP ---
Record Of Operation [facility] [address] [place]. [address] NAME: EMERSON CORBIN : [birth year] STATUS : ADM IN PAT#: [id number] AGE: 86 ADM/REG DATE : 05/10/17 MR#: [id number] REPORT SERV DATE: 05/16/17 DICTATED BY: ALEJANDRA ROWLEY DATE: 05/16/17 REPORT STATUS : Draft TRANSCRIBED BY: MODBelén DATE: 05/16/17 DATE OF PROCEDURE: 05/16/2017 PREOPERATIVE DIAGNOSES: 1. Transitional cell carcinoma of the bladder. 2. Gross hematuria with clots. POSTOPERATIVE DIAGNOSES: 1. Transitional cell carcinoma of the bladder. 2. Gross hematuria with clots. PROCEDURE: Cystoscopy, clot evacuation, fulguration of bleeding, exchange of Oliveros catheter. ANESTHESIA: General. SPECIMENS: None. ESTIMATED BLOOD LOSS: Minimal. COMPLICATIONS: None. DRAINS: A 24-Slovak three-way Oliveros catheter with a 5 mL balloon. 12 mL were placed in the balloon. DISPOSITION: Extubated to recovery room. HISTORY: This 86-year-old gentleman with untreatable prostate cancer, presented with elevated Coumadin levels and gross hematuria with clot retention. He presents today for the above-stated procedure. PROCEDURE IN DETAIL: After consent was obtained, the patient was taken to the operating room, and placed on the operative table in a supine position. General anesthetic was induced. The patient was then placed in dorsal lithotomy position. His catheter was removed. He was then prepped and draped in the usual sterile fashion. Cystourethroscopy was performed with a 30 and 70-degree lens. He had a TURP defect of the prostate. There were no lesions in the prostatic urethra. He did have a lead pipe prostatic urethra and bladder neck. His bladder held a very small amount of fluid at a time. He did have a small amount of retained clot in the bladder. The Kid$Shirt evacuator was used to remove this. This was approximately 20 mL. Once in the bladder, the bladder was systematically evaluated. It was difficult to do so because there was diffuse oozing from the posterior bladder wall and bladder dome. We did not see any gross tumors. His bladder was misshapen, trabeculated, there was a small diverticulum on the posterior wall, which contained his left ureteral orifice. The other option was that this was a very wide ureteral orifice that refluxes. Graspers were used to remove several clots that were adherent to the posterior wall of the bladder near the trigone. We could not definitively see efflux from either ureteral orifice. Methylene blue was given. The rollerball was placed and we started at the dome of Record Of Operation [address] [place]. [address] NAME: EMERSON CORBIN : [birth year] STATUS : ADM IN PAT#: [id number] AGE: 86 ADM/REG DATE : 05/10/17 MR#: [id number] REPORT SERV DATE: 05/16/17 DICTATED BY: ALEJANDRA ROWLEY DATE: 05/16/17 REPORT STATUS : Draft TRANSCRIBED BY: MODESTO DATE: 05/16/17 the bladder and high on the posterior wall away from the trigone. The bleeding areas were cauterized. We could easily see efflux from this wide left diverticular appearing area. The area that looked like the right ureteral orifice never effluxed. We generally cauterized only the grossly bleeding areas in that region. The bladder was then evaluated, no frankly bleeding areas were noted. The bladder was left full. The scope and sheath were removed. The new catheter was placed. The balloon was inflated with 12 mL and seated at the bladder neck. It would only accept 50 mL of water before it began leaking around the catheter. This is consistent with his bladder capacity. The irrigant, however, was clear. We did connect this to continuous bladder irrigation, and it did run at a slow drip without difficulty. The patient was then awakened from his anesthetic, extubated, and taken to recovery room in good condition. NUZHAT/MODESTO Alejandra Rowley M.D. / [id number] CC: MD Cj Mujica MD
--- NOTE | ~2017-05-10 | DS ---
Discharge Summary [facility] [address] [place]. [address] NAME: EMERSON COSTELLO : [birth year] STATUS : DIS IN PAT#: [id number] AGE: 86 ADM/REG DATE : 05/10/17 MR#: [id number] REPORT SERV DATE: 05/18/17 DICTATED BY: LUCRETIA ARIZMENDI DATE: 05/17/17 REPORT STATUS : Draft TRANSCRIBED BY: MODL DATE: 05/17/17 ADMISSION DATE: 05/10/2017 DISCHARGE DATE: 05/17/2017 REASON FOR ADMISSION: Gross hematuria with blood clots. HISTORY OF PRESENT ILLNESS: Please refer to my history and physical dated 05/10/2017 for complete details regarding the patient's admission. In brief, the patient was admitted to the Hospitalist Service for management of gross hematuria with blood clots. HOSPITAL COURSE: Several issues were addressed. 1. Gross hematuria with blood clots. The patient was just discharged from our service by Dr. 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 The patient came in with gross hematuria. A Oliveros catheter was placed in the ER and placed on continuous bladder irrigation. Urinalysis was sent and urine culture came back as being positive for CRE Pseudomonas aeruginosa. Dr. Mcgrath was consulted for his gross hematuria. He had recommended holding Coumadin. His Coumadin was held. He had been placed off and on of CBI for multiple days, it was initially clearing up with CBI, we would take him off it and he would develop blood clots along with still hematuria. Even off Coumadin, we ended up having to give him two doses of vitamin K to bring his INR down. After a week's worth of failing CBI, Dr. Rowley took the patient to the operating room on 05/16/2017 and performed a cystoscopy with clot evacuation, fulguration of bleeding and exchange of Oliveros catheter. For two days now, his urine in his Oliveros catheter has been clear. 2. CKD, stage IV. The patient presented with elevated creatinine level. With IV fluids, it had come down, still consider CKD, stage IV. 3. 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 Dr. Mcgrath again was consulted and recommended hospice given his overall medical problems for which the patient is now amenable to. 4. Chronic systolic heart failure with an EF of 30% to 35% compensated. Dr. Cuenca had discharged the patient at the end of February with Coreg and hydralazine for his congestive heart failure. Interestingly enough, it did not appear on his admission medicine reconciliation. His blood pressure had remained marginally on the low side with systolic blood pressure of around 100. I do not think this patient could have tolerated any cardiac medications and certainly would not have tolerated the addition of an SANKET inhibitor given his kidney function. He remained compensated throughout the whole hospitalization. He is not hypoxic and he is saturating 95% on room air. 5. Paroxysmal AFib, now in sinus rhythm. The patient does take Coumadin for his paroxysmal AFib. He remained in sinus rhythm at the hospitalization. We had a long discussion regarding the increased risk with mechanical valve and atrial fibrillation causing a stroke in someone who is not anticoagulated, but given the significant difficulty in controlling his hematuria, we have had him off Coumadin for several days. Dr. Mcgrath recommended not to restart Coumadin, and I fear that if he is goes back on Coumadin, he will start to develop hematuria again. 6. Possible complicated urinary tract infection secondary to chronic Oliveros. The patient Discharge Summary [address] 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 He was started on Zosyn. He has received eight days of IV Zosyn. Interestingly enough, he had a urine culture that was done prior to admission which grew out MRSA and Pseudomonas, but again our in-house culture just grew out Pseudomonas. He has received a full treatment. It is unclear if this is colonization versus an active infection, but anyways given his overall medical issues, he was treated with eight days of IV Zosyn. 7. Patient is a DNR/DNI. DISPOSITION: The patient will be discharged home today. We had [facility] evaluate him. He is awaiting on some followup answers to some of his questions. He was discharged by Dr. Cuenca with [facility], although he was apparently taken off hospice a week after he was discharged because he wanted to continue seeing some of his [facility] physicians. His niece apparently works for [facility] and says that he should not have been taken off. It seems that there has been some miscommunication. We did ask [facility] to evaluate the patient and educate him on their services. He is awaiting their response. For the majority of the hospitalization, the patient had not been interested in hospice, but given his overall multiple comorbidities, he has finally agreed to pursuing hospice again. He is not sure which agency he will go with. If the patient does not leave with [facility], then he states that he will contact any hospice agency shortly after he is discharged. So, the patient will be discharged home to continue the [facility] as a DO NOT RESUSCITATE/DO NOT INTUBATE and he will pursue hospice in the near future if he does not enroll with [facility] prior to discharge. DISCHARGE DIAGNOSES: 1. Gross hematuria with blood clots, status post unsuccessful CBI necessitating the need for cystoscopy with clot evacuation and fulguration by Dr. Rowley. 2. Chronic Oliveros with a complicated urinary tract infection, now resolved. 3. Chronic kidney disease, stage IV. 4. Chronic systolic congestive heart failure with an ejection fraction of 35%. 5. Paroxysmal atrial fibrillation, currently in normal sinus rhythm; mechanical valve, on chronic anticoagulation, not recommended to continue given his difficult to control hematuria. 6. DO NOT RESUSCITATE. PROCEDURES: Include consultation by Dr. Mcgrath, consultation by Dr. Rowley, clot evacuation with cystoscopy and fulguration and change out of Oliveros catheter on 05/16/2017. DISCHARGE MEDICATIONS: Include allopurinol 100 mg daily, vitamin D3 2000 units with supper, iron sulfate 325 mg twice a day, levothyroxine 200 mcg every morning, Ditropan 5 mg twice a day, potassium chloride 10 mEq daily, senna 8.6 mg twice a day, tramadol p.r.n. pain, Colace p.r.n., multivitamins p.r.n., Tylenol p.r.n., and Lasix 40 mg once a day. FOLLOWUP: The patient will follow up with [facility] along with a hospice agency of his choosing. This is Dr. Lucretia Arizmendi spending over 30 minutes discharge planning and coordination of care Discharge Summary [address] [address] NAME: EMERSON COSTELLO : [birth year] STATUS : DIS IN PAT#: [id number] AGE: 86 ADM/REG DATE : 05/10/17 MR#: [id number] REPORT SERV DATE: 05/18/17 DICTATED BY: LUCRETIA ARIZMENDI DATE: 05/17/17 REPORT STATUS : Draft TRANSCRIBED BY: MODESTO DATE: 05/17/17 [address] Mr. Costello. Please note, he does have a high rate of readmission if he decides to change his mind and not pursue hospice. DICTATED BY: MD RUTH Mujica/MODESTO Lucretia Arizmendi MD / [id number] CC: MD Cj Mujica MD John C House, M.D.
[2017-05-10 07:00] LABS: BASOPHILS 0.2 %; BASOPHILS ABSOLUTE 0.02 10/3/uL (0.0-0.16); EOSINOPHILS ABSOLUTE 0.23 10/3/uL (0.0-0.53); HEMATOCRIT 26.5 % (40.0-51.0); HEMOGLOBIN 8.6 g/dL (13.6-17.8); IMMATURE GRANULOCYTES 0.3 %; IMMATURE GRANULOCYTES ABSOLUTE 0.03 10/3/uL (0.0-0.11); LYMPHOCYTES 7.4 %; LYMPHOCYTES ABSOLUTE 0.87 10/3/uL (0.67-4.30); MEAN CORPUS HGB CONC 32.5 g/dL (32.0-36.0); MEAN CORPUSCULAR VOLUME 83.3 fL (80-100); MEAN PLATELET VOLUME 8.6 fL (9.2-13.0); MONOCYTES 6.1 %; MONOCYTES ABSOLUTE 0.72 10/3/uL (0.21-1.20); NEUTROPHILS ABSOLUTE 9.91 10/3/uL (2.02-8.40); PLATELET COUNT 212 10/3/uL (150-400); RBC DISTRIBUTION WIDTH 17.7 % (12.0-16.0); RED CELL COUNT 3.18 10/6/uL (4.7-6.1)
[2017-05-10 07:05] LABS: ER CBC TAT 0 Hrs 09 Mins; MANUAL DIFF NO %; WHITE BLOOD CELLS 11.8 10/3/uL (4.5-10.5)
[~2017-05-10 07:13] MED LIST changes: +APRES10B PO; +DURICEF; +DURICEF PO; +LIPOTRIAD1 CAP PO
[2017-05-10 07:15] LABS: A/G RATIO 0.7 (0.7-1.9); ALBUMIN 3.4 G/DL (3.5-5.0); ALKALINE PHOSPHATASE 90 U/L (45-117); BUN (BLOOD UREA NITROGEN) 64 MG/DL (6-23); CALCIUM, SERUM 8.7 MG/DL (8.5-10.4); CHLORIDE, SERUM 106 MMOL/L (96-112); CO2 (CARBON DIOXIDE) 24 MMOL/L (24-34); GFR AFRICAN AMERICAN 16 ML/MIN (>=60); GFR NON AFRICAN AMERICAN 14 ML/MIN (>=60); GLOBULIN 4.6 G/DL (2.5-4.1); GLUCOSE, SERUM 84 MG/DL (60-99); POTASSIUM, SERUM 4.4 MMOL/L (3.5-5.3); SGOT(AST) 18 U/L (5-40); SGPT(ALT) 24 U/L (5-65); SODIUM, SERUM 141 MMOL/L (135-148); TOTAL BILIRUBIN 0.6 MG/DL (0-1.2)
[2017-05-10 07:18] LABS: PARTIAL THROMBO TIME 51.3 SEC (22.5-37.2)
[2017-05-10 07:20] LABS: PROTIME (NOT ORD) 30.6 SEC (12.0-14.5)
[2017-05-10 07:39] LABS: ASCORBIC ACID (UR NOT ORDER) NEG (NEG); BILIRUBIN, URINE NEGATIVE (NEG); ER URINALYSIS TAT 0 Hrs 18 Mins; KETONE, URINE TRACE MG/DL (NEG); LEUKOCYTE ESTERASE(NOT OR SMALL (NEG); NITRITE (URINE) NEG (NEG); WBC (NOT ORDERED) (RFLEX) 14 (0-5)
[2017-05-10] MEDS ORDERED: CEFT5 PO (08:05)
[2017-05-10] MEDS ORDERED: DITRO5 PO (08:06)
[2017-05-10] MEDS ORDERED: ACET500CAP PO (08:08)
[2017-05-10] MEDS ORDERED: L80 PO (08:10)
[2017-05-10] MEDS ORDERED: FERROUS SULF325 M1 PO (08:11)
[2017-05-10 14:53] LABS: BUN (BLOOD UREA NITROGEN) 67 MG/DL (6-23); CALCIUM, SERUM 8.4 MG/DL (8.5-10.4); CHLORIDE, SERUM 106 MMOL/L (96-112); CO2 (CARBON DIOXIDE) 24 MMOL/L (24-34); CREATININE 4.08 MG/DL (0.70-1.30); GFR AFRICAN AMERICAN 14 ML/MIN (>=60); GFR NON AFRICAN AMERICAN 12 ML/MIN (>=60); POTASSIUM, SERUM 4.8 MMOL/L (3.5-5.3); SODIUM, SERUM 140 MMOL/L (135-148)
[2017-05-10 14:55] LABS: GLUCOSE, SERUM 105 MG/DL (60-99)
[2017-05-11 04:37] LABS: BASOPHILS 0.1 %; BASOPHILS ABSOLUTE 0.02 10/3/uL (0.0-0.16); EOSINOPHILS 0.4 %; EOSINOPHILS ABSOLUTE 0.07 10/3/uL (0.0-0.53); HEMOGLOBIN 8.8 g/dL (13.6-17.8); IMMATURE GRANULOCYTES 0.4 %; IMMATURE GRANULOCYTES ABSOLUTE 0.07 10/3/uL (0.0-0.11); LYMPHOCYTES 7.5 %; LYMPHOCYTES ABSOLUTE 1.32 10/3/uL (0.67-4.30); MEAN CORPUS HGB CONC 32.6 g/dL (32.0-36.0); MEAN CORPUSCULAR HEMOGLOB 27.8 pg (26.0-34.0); MEAN CORPUSCULAR VOLUME 85.2 fL (80-100); MEAN PLATELET VOLUME 8.8 fL (9.2-13.0); MONOCYTES 6.4 %; MONOCYTES ABSOLUTE 1.13 10/3/uL (0.21-1.20); NEUTROPHILS 85.2 %; NEUTROPHILS ABSOLUTE 15.06 10/3/uL (2.02-8.40); PLATELET COUNT 225 10/3/uL (150-400); RBC DISTRIBUTION WIDTH 17.8 % (12.0-16.0); RED CELL COUNT 3.17 10/6/uL (4.7-6.1)
[2017-05-11 04:39] LABS: MANUAL DIFF NO %; WHITE BLOOD CELLS 17.7 10/3/uL (4.5-10.5)
[2017-05-11 04:45] LABS: INTERNATIONAL NORMAL RATI 3.8 UNITS (-); PARTIAL THROMBO TIME 67.2 SEC (22.5-37.2)
[2017-05-11 04:50] LABS: PROTIME (NOT ORD) 37.5 SEC (12.0-14.5)
[2017-05-11 04:56] LABS: BUN (BLOOD UREA NITROGEN) 65 MG/DL (6-23); CALCIUM, SERUM 8.4 MG/DL (8.5-10.4); CHLORIDE, SERUM 104 MMOL/L (96-112); CO2 (CARBON DIOXIDE) 23 MMOL/L (24-34); CREATININE 4.11 MG/DL (0.70-1.30); GFR AFRICAN AMERICAN 14 ML/MIN (>=60); GFR NON AFRICAN AMERICAN 12 ML/MIN (>=60); GLUCOSE, SERUM 102 MG/DL (60-99); POTASSIUM, SERUM 4.4 MMOL/L (3.5-5.3); SODIUM, SERUM 137 MMOL/L (135-148)
[2017-05-11 12:23] LABS: PROCALCITONIN 0.41 ng/mL (<0.5)
[2017-05-12 06:35] LABS: BASOPHILS 0.1 %; BASOPHILS ABSOLUTE 0.01 10/3/uL (0.0-0.16); EOSINOPHILS 1.9 %; EOSINOPHILS ABSOLUTE 0.22 10/3/uL (0.0-0.53); HEMOGLOBIN 7.8 g/dL (13.6-17.8); IMMATURE GRANULOCYTES 0.4 %; IMMATURE GRANULOCYTES ABSOLUTE 0.04 10/3/uL (0.0-0.11); LYMPHOCYTES 4.4 %; MEAN CORPUS HGB CONC 32.9 g/dL (32.0-36.0); MEAN CORPUSCULAR VOLUME 84.9 fL (80-100); MEAN PLATELET VOLUME 9.3 fL (9.2-13.0); MONOCYTES 11.9 %; MONOCYTES ABSOLUTE 1.35 10/3/uL (0.21-1.20); NEUTROPHILS 81.3 %; NEUTROPHILS ABSOLUTE 9.21 10/3/uL (2.02-8.40); PLATELET COUNT 193 10/3/uL (150-400); RED CELL COUNT 2.79 10/6/uL (4.7-6.1); WHITE BLOOD CELLS 11.3 10/3/uL (4.5-10.5)
[2017-05-12 06:36] LABS: HEMATOCRIT 23.7 % (40.0-51.0); MANUAL DIFF NO %
[2017-05-12 06:48] LABS: CALCIUM, SERUM 8.6 MG/DL (8.5-10.4); CHLORIDE, SERUM 104 MMOL/L (96-112); CO2 (CARBON DIOXIDE) 23 MMOL/L (24-34); CREATININE 4.29 MG/DL (0.70-1.30); GFR AFRICAN AMERICAN 13 ML/MIN (>=60); GFR NON AFRICAN AMERICAN 12 ML/MIN (>=60); GLUCOSE, SERUM 93 MG/DL (60-99); PHOSPHORUS, SERUM 3.9 MG/DL (2.5-4.5); POTASSIUM, SERUM 4.4 MMOL/L (3.5-5.3); SODIUM, SERUM 135 MMOL/L (135-148)
[2017-05-12 06:49] LABS: BUN (BLOOD UREA NITROGEN) 69 MG/DL (6-23)
[2017-05-13 06:27] LABS: BASOPHILS 0.1 %; BASOPHILS ABSOLUTE 0.01 10/3/uL (0.0-0.16); EOSINOPHILS 3.9 %; EOSINOPHILS ABSOLUTE 0.37 10/3/uL (0.0-0.53); HEMATOCRIT 23.7 % (40.0-51.0); HEMOGLOBIN 7.8 g/dL (13.6-17.8); IMMATURE GRANULOCYTES 0.3 %; IMMATURE GRANULOCYTES ABSOLUTE 0.03 10/3/uL (0.0-0.11); LYMPHOCYTES 8.2 %; LYMPHOCYTES ABSOLUTE 0.78 10/3/uL (0.67-4.30); MEAN CORPUS HGB CONC 32.9 g/dL (32.0-36.0); MEAN CORPUSCULAR HEMOGLOB 27.7 pg (26.0-34.0); MEAN PLATELET VOLUME 9.4 fL (9.2-13.0); MONOCYTES ABSOLUTE 0.86 10/3/uL (0.21-1.20); NEUTROPHILS 78.5 %; NEUTROPHILS ABSOLUTE 7.49 10/3/uL (2.02-8.40); PLATELET COUNT 201 10/3/uL (150-400); RED CELL COUNT 2.82 10/6/uL (4.7-6.1); WHITE BLOOD CELLS 9.5 10/3/uL (4.5-10.5)
[2017-05-13 06:28] LABS: MANUAL DIFF NO %
[2017-05-13 06:33] LABS: INTERNATIONAL NORMAL RATI 3.4 UNITS (-); PROTIME (NOT ORD) 33.9 SEC (12.0-14.5)
[2017-05-13 06:41] LABS: BUN (BLOOD UREA NITROGEN) 71 MG/DL (6-23); CALCIUM, SERUM 8.5 MG/DL (8.5-10.4); CHLORIDE, SERUM 102 MMOL/L (96-112); CO2 (CARBON DIOXIDE) 24 MMOL/L (24-34); CREATININE 3.97 MG/DL (0.70-1.30); GFR AFRICAN AMERICAN 15 ML/MIN (>=60); GFR NON AFRICAN AMERICAN 13 ML/MIN (>=60); GLUCOSE, SERUM 87 MG/DL (60-99); PHOSPHORUS, SERUM 3.7 MG/DL (2.5-4.5); POTASSIUM, SERUM 4.5 MMOL/L (3.5-5.3); SODIUM, SERUM 134 MMOL/L (135-148)
[2017-05-14 06:12] LABS: BASOPHILS 0.3 %; BASOPHILS ABSOLUTE 0.02 10/3/uL (0.0-0.16); EOSINOPHILS 4.8 %; EOSINOPHILS ABSOLUTE 0.38 10/3/uL (0.0-0.53); HEMATOCRIT 22.6 % (40.0-51.0); HEMOGLOBIN 7.4 g/dL (13.6-17.8); IMMATURE GRANULOCYTES 0.3 %; IMMATURE GRANULOCYTES ABSOLUTE 0.02 10/3/uL (0.0-0.11); LYMPHOCYTES 11.5 %; LYMPHOCYTES ABSOLUTE 0.91 10/3/uL (0.67-4.30); MEAN CORPUS HGB CONC 32.7 g/dL (32.0-36.0); MEAN CORPUSCULAR HEMOGLOB 27.6 pg (26.0-34.0); MEAN CORPUSCULAR VOLUME 84.3 fL (80-100); MEAN PLATELET VOLUME 9.3 fL (9.2-13.0); MONOCYTES 10.4 %; MONOCYTES ABSOLUTE 0.82 10/3/uL (0.21-1.20); NEUTROPHILS 72.7 %; NEUTROPHILS ABSOLUTE 5.77 10/3/uL (2.02-8.40); PLATELET COUNT 222 10/3/uL (150-400); RED CELL COUNT 2.68 10/6/uL (4.7-6.1); WHITE BLOOD CELLS 7.9 10/3/uL (4.5-10.5)
[2017-05-14 06:13] LABS: MANUAL DIFF NO %
[2017-05-14 06:25] LABS: CALCIUM, SERUM 8.2 MG/DL (8.5-10.4); CHLORIDE, SERUM 105 MMOL/L (96-112); CO2 (CARBON DIOXIDE) 23 MMOL/L (24-34); CREATININE 3.76 MG/DL (0.70-1.30); GFR AFRICAN AMERICAN 16 ML/MIN (>=60); GFR NON AFRICAN AMERICAN 14 ML/MIN (>=60); GLUCOSE, SERUM 76 MG/DL (60-99); PHOSPHORUS, SERUM 3.5 MG/DL (2.5-4.5); POTASSIUM, SERUM 4.4 MMOL/L (3.5-5.3); SODIUM, SERUM 138 MMOL/L (135-148)
[2017-05-14 06:27] LABS: BUN (BLOOD UREA NITROGEN) 61 MG/DL (6-23)
[2017-05-15 06:04] LABS: PARTIAL THROMBO TIME 46.9 SEC (22.5-37.2); PROTIME (NOT ORD) 22.9 SEC (12.0-14.5)
[2017-05-15 06:09] LABS: BASOPHILS 0.8 %; BASOPHILS ABSOLUTE 0.05 10/3/uL (0.0-0.16); EOSINOPHILS 5.4 %; EOSINOPHILS ABSOLUTE 0.34 10/3/uL (0.0-0.53); HEMATOCRIT 23.7 % (40.0-51.0); HEMOGLOBIN 7.6 g/dL (13.6-17.8); IMMATURE GRANULOCYTES 0.3 %; IMMATURE GRANULOCYTES ABSOLUTE 0.02 10/3/uL (0.0-0.11); LYMPHOCYTES 15.3 %; LYMPHOCYTES ABSOLUTE 0.97 10/3/uL (0.67-4.30); MEAN CORPUS HGB CONC 32.1 g/dL (32.0-36.0); MEAN CORPUSCULAR HEMOGLOB 27.3 pg (26.0-34.0); MEAN CORPUSCULAR VOLUME 85.3 fL (80-100); MONOCYTES 12.2 %; MONOCYTES ABSOLUTE 0.77 10/3/uL (0.21-1.20); NEUTROPHILS ABSOLUTE 4.17 10/3/uL (2.02-8.40); PLATELET COUNT 222 10/3/uL (150-400); RED CELL COUNT 2.78 10/6/uL (4.7-6.1); WHITE BLOOD CELLS 6.3 10/3/uL (4.5-10.5)
[2017-05-15 06:10] LABS: MANUAL DIFF NO %
[2017-05-15 06:14] LABS: CALCIUM, SERUM 8.5 MG/DL (8.5-10.4); CHLORIDE, SERUM 108 MMOL/L (96-112); CO2 (CARBON DIOXIDE) 25 MMOL/L (24-34); GFR AFRICAN AMERICAN 17 ML/MIN (>=60); GFR NON AFRICAN AMERICAN 14 ML/MIN (>=60); GLUCOSE, SERUM 68 MG/DL (60-99); PHOSPHORUS, SERUM 3.7 MG/DL (2.5-4.5); POTASSIUM, SERUM 4.4 MMOL/L (3.5-5.3); SODIUM, SERUM 141 MMOL/L (135-148)
[2017-05-15 06:15] LABS: BUN (BLOOD UREA NITROGEN) 53 MG/DL (6-23)
[2017-05-16 05:12] LABS: BASOPHILS 0.4 %; BASOPHILS ABSOLUTE 0.03 10/3/uL (0.0-0.16); EOSINOPHILS ABSOLUTE 0.35 10/3/uL (0.0-0.53); HEMATOCRIT 22.7 % (40.0-51.0); HEMOGLOBIN 7.4 g/dL (13.6-17.8); IMMATURE GRANULOCYTES 0.4 %; IMMATURE GRANULOCYTES ABSOLUTE 0.03 10/3/uL (0.0-0.11); LYMPHOCYTES 15.3 %; LYMPHOCYTES ABSOLUTE 1.06 10/3/uL (0.67-4.30); MANUAL DIFF NO %; MEAN CORPUS HGB CONC 32.6 g/dL (32.0-36.0); MEAN CORPUSCULAR HEMOGLOB 27.9 pg (26.0-34.0); MEAN CORPUSCULAR VOLUME 85.7 fL (80-100); MONOCYTES 9.7 %; MONOCYTES ABSOLUTE 0.67 10/3/uL (0.21-1.20); NEUTROPHILS 69.2 %; PLATELET COUNT 222 10/3/uL (150-400); RED CELL COUNT 2.65 10/6/uL (4.7-6.1); WHITE BLOOD CELLS 6.9 10/3/uL (4.5-10.5)
[2017-05-16 05:18] LABS: INTERNATIONAL NORMAL RATI 1.7 UNITS (-); PARTIAL THROMBO TIME 42.3 SEC (22.5-37.2); PROTIME (NOT ORD) 20.2 SEC (12.0-14.5)
[2017-05-16 05:26] LABS: ALBUMIN 2.8 G/DL (3.5-5.0); BUN (BLOOD UREA NITROGEN) 51 MG/DL (6-23); CALCIUM, SERUM 8.6 MG/DL (8.5-10.4); CHLORIDE, SERUM 105 MMOL/L (96-112); CO2 (CARBON DIOXIDE) 24 MMOL/L (24-34); CREATININE 3.46 MG/DL (0.70-1.30); GFR AFRICAN AMERICAN 17 ML/MIN (>=60); GFR NON AFRICAN AMERICAN 15 ML/MIN (>=60); PHOSPHORUS, SERUM 3.1 MG/DL (2.5-4.5); POTASSIUM, SERUM 4.5 MMOL/L (3.5-5.3); SODIUM, SERUM 135 MMOL/L (135-148)
[2017-05-16 05:27] LABS: GLUCOSE, SERUM 84 MG/DL (60-99)
[2017-05-17 08:25] LABS: BASOPHILS 0.2 %; BASOPHILS ABSOLUTE 0.02 10/3/uL (0.0-0.16); EOSINOPHILS 3.7 %; EOSINOPHILS ABSOLUTE 0.32 10/3/uL (0.0-0.53); HEMOGLOBIN 7.5 g/dL (13.6-17.8); IMMATURE GRANULOCYTES 0.2 %; IMMATURE GRANULOCYTES ABSOLUTE 0.02 10/3/uL (0.0-0.11); LYMPHOCYTES 9.9 %; LYMPHOCYTES ABSOLUTE 0.86 10/3/uL (0.67-4.30); MEAN CORPUS HGB CONC 32.6 g/dL (32.0-36.0); MEAN CORPUSCULAR HEMOGLOB 28.2 pg (26.0-34.0); MEAN CORPUSCULAR VOLUME 86.5 fL (80-100); MONOCYTES 7.8 %; MONOCYTES ABSOLUTE 0.68 10/3/uL (0.21-1.20); NEUTROPHILS 78.2 %; NEUTROPHILS ABSOLUTE 6.81 10/3/uL (2.02-8.40); PLATELET COUNT 206 10/3/uL (150-400); RED CELL COUNT 2.66 10/6/uL (4.7-6.1); WHITE BLOOD CELLS 8.7 10/3/uL (4.5-10.5)
[2017-05-17 08:26] LABS: MANUAL DIFF NO %
[2017-05-17 08:27] LABS: INTERNATIONAL NORMAL RATI 1.6 UNITS (-); PARTIAL THROMBO TIME 38.6 SEC (22.5-37.2); PROTIME (NOT ORD) 18.8 SEC (12.0-14.5)
[2017-05-17 08:30] LABS: ALBUMIN 2.8 G/DL (3.5-5.0); CALCIUM, SERUM 8.6 MG/DL (8.5-10.4); CHLORIDE, SERUM 106 MMOL/L (96-112); CO2 (CARBON DIOXIDE) 24 MMOL/L (24-34); GFR AFRICAN AMERICAN 18 ML/MIN (>=60); GFR NON AFRICAN AMERICAN 16 ML/MIN (>=60); GLUCOSE, SERUM 80 MG/DL (60-99); PHOSPHORUS, SERUM 2.9 MG/DL (2.5-4.5); POTASSIUM, SERUM 4.6 MMOL/L (3.5-5.3); SODIUM, SERUM 136 MMOL/L (135-148)
[2017-05-17 08:32] LABS: BUN (BLOOD UREA NITROGEN) 42 MG/DL (6-23)
== END 2017-05-17 15:55 | disposition hospice, home (50) | DRG 669 ==
LOC: ER 07:13 → CDU1 09:46 → 4SO 13:29
PROVIDERS: Hospitalist; Internal Medicine; Urology
PROC: 0T2BX0Z Change Drainage Device in Bladder, External Approach (ICD-10-PCS; principal; 2017-05-16 09:45)
PROC: 0T5B8ZZ Destruction of Bladder, Via Natural or Artificial Opening Endoscopic (ICD-10-PCS; principal; 2017-05-16 09:45)
PROC: 0TCB8ZZ Extirpation of Matter from Bladder, Via Natural or Artificial Opening Endoscopic (ICD-10-PCS; principal; 2017-05-16 09:45)
DX: T83.83XA Hemorrhage due to genitourinary prosthetic devices, implants and grafts, initial encounter (principal); N18.4 Chronic kidney disease, stage 4 (severe); I48.2 Chronic atrial fibrillation; I13.0 Hypertensive heart and chronic kidney disease with heart failure and stage 1 through stage 4 chronic kidney disease, or unspecified chronic kidney disease; I50.22 Chronic systolic (congestive) heart failure; D63.1 Anemia in chronic kidney disease; C67.9 Malignant neoplasm of bladder, unspecified; I25.5 Ischemic cardiomyopathy; Z66 Do not resuscitate; Y83.8 Other surgical procedures as the cause of abnormal reaction of the patient, or of later complication, without mention of misadventure at the time of the procedure; T45.515A Adverse effect of anticoagulants, initial encounter; E03.9 Hypothyroidism, unspecified; Z79.01 Long term (current) use of anticoagulants; Z95.2 Presence of prosthetic heart valve; Z88.5 Allergy status to narcotic agent; Z92.3 Personal history of irradiation; T83.511A Infection and inflammatory reaction due to indwelling urethral catheter, initial encounter; Y84.6 Urinary catheterization as the cause of abnormal reaction of the patient, or of later complication, without mention of misadventure at the time of the procedure
CPT/HCPCS: 36415; 80048; 80053; 80069; 81001; 82962; 83735; 84100; 84145; 85025; 85610; 85730; 86850; 86900; 86901; 87077; 87086; 87186; 93005; 96374; 96375; 97162-GP; 99284; A9270-GY; G8978-CK-GP; G8979-CJ-GP; J1170; J2250; J2370; J2405; J2543; J3010